=== PATIENT | male | born 1930 | race Caucasian/White ===

== ENCOUNTER 2016-09-24 12:35 | Day surgery (SDC) | payer MEDICARE ==
[~2016-09-24 12:35] MED LIST: AMLO10 PO; ASPI325T PO; BACT800T5 PO; CLOP75 PO; FENO1TAB76 PO; FISH1000 PO; FLAG500T PO; JANU50TA PO; LIPI20TA PO; NIAC250C6 PO; OCUVTAB4 PO; REST0.05 OU; VITA200017 PO
[2016-09-24 14:20] VITALS: BP 141/69; PULSE 45; RESP 18; O2SAT 97
[2016-09-24 14:35] VITALS: BP 138/79; PULSE 47; RESP 18; TEMP 97.7; O2SAT 98
--- NOTE | 2016-09-24 16:27 | RADRPT ---
EXAM DATE/TIME: 09/24/2016 13:41 [facility] COMPARISON: No previous studies available for comparison. EXTERNAL COMPARISON: [facility], CT SOFT TISSUE NECK, W/O CONTRAST, Sep 10 2016 INDICATIONS : Enlarged lymph node. MEDICAL HISTORY : Hypercholesterolemia. Colon cancer. Prostate cancer. Bladder cancer. Hypertension. Kidney disease. Melanoma. CVA. Diabetes. SURGICAL HISTORY : Cholecystectomy T & A. Colon resection. TURP. TUR-BT. Left rotater cuff. ENCOUNTER: Initial ACUITY: 3 months PAIN SCORE: 0/10 LOCATION: Right lymph node. ORGAN: Right lymph node SPECIMENS: Two core specimen(s) submitted for pathologic evaluation. DEVICE: 18 gauge Temno needle Post procedure scanning reveals no hematoma or other complication. The possibility does exist that the tissue obtained will be non-diagnostic. If the sample is non-carol gnostic a repeat biopsy or surgical biopsy may need to be performed. TECHNIQUE: 1. Ultrasound guidance for needle biopsy. 2. Needle biopsy. The risks, benefits, and alternatives to ultrasound guided needle biopsy were explained to the patien t in detail including the risk of bleeding and infection. Written and verbal informed consent was ob tained. With the patient on the ultrasound table, images were obtained. Overlying skin was prepped and drape d in the usual sterile fashion and Lidocaine was utilized as a local anesthetic. A needle was advanced into the identified target and the number of specimens as above obtained and lockett bmitted for pathologic evaluation. The patient tolerated the procedure well and left the ultrasound suite in stable condition. CONCLUSION: Uncomplicated ultrasound guided needle biopsy of mass in the right neck. Hao Tolentino MD on September 24, 2016 at 16:25 Board Certified Radiologist. This report was verified electronically.
[2016-09-24] MEDS ORDERED: LIDOCAINE HCL 1% PF 30 ML VIAL ONE (17:28)
== END 2016-09-24 14:48 | disposition home or self-care (01) ==
LOC: HRAD 12:35 → HRIP 12:38 → HRAD 14:48
PROVIDERS: ATTEND Surgery
DX: C96.Z Other specified malignant neoplasms of lymphoid, hematopoietic and related tissue (principal); E11.9 Type 2 diabetes mellitus without complications; E78.00 Pure hypercholesterolemia, unspecified; I10 Essential (primary) hypertension; Z85.038 Personal history of other malignant neoplasm of large intestine; Z85.46 Personal history of malignant neoplasm of prostate
CPT/HCPCS: 38505; 76942; 88305; 88341; 88342

== ENCOUNTER → 2016-10-15 | Outpatient (CLI) | payer MEDICARE ==
[~2016-10-15] MED LIST changes: +AMLO10CA PO; +ATOR20TA15 PO; +LISI-515 PO; +MULT-142 PO; +NIAC500C4 PO; +NORC5TAB PO; +OMEG12002 PO; +PLAV75TA29 PO; +SITA1TAB2 PO; +VITA2000 PO
--- NOTE | 2016-10-15 13:44 | RADRPT ---
EXAM DATE/TIME: 10/15/2016 00:00 [facility] COMPARISON: No previous studies available for comparison. OUTSIDE STUDY REVIEWED: INDICATIONS : CT Guided Left Lung Lesion Biopsy FINDINGS: There are several small PET positive nodules that are too small for percutaneous biopsy. These could be localized for thorascopic biopsy if desired. Thank you for this consultation. . Gerber Thompson MD FACR on October 15, 2016 at 13:41 Board Certified Radiologist. This report was verified electronically.
== END ==
LOC: HRAD 12:17
PROVIDERS: ATTEND Surgery
DX: R91.1 Solitary pulmonary nodule (principal)
CPT/HCPCS: 76140

== ENCOUNTER 2016-10-28 10:40 | Inpatient (IN) | payer MEDICARE ==
[~2016-10-28] VITALS: Ht 179.1 cm; Wt 97.0 kg
[~2016-10-28 10:40] MED LIST changes: -AMLO10CA PO; -ATOR20TA15 PO; -LISI-515 PO; -MULT-142 PO; -NIAC500C4 PO; -NORC5TAB PO; -OMEG12002 PO; -PLAV75TA29 PO; -SITA1TAB2 PO; -VITA2000 PO
[2016-10-28] MEDS ORDERED: LACTATED RINGER'S 1000 ML IV PRN (11:15)
[2016-10-28] MEDS ORDERED: CHLORHEXIDINE GLUCONATE 2 % 1 PACK (2 CLOTHS) TOPICAL PRN (11:15)
[2016-10-28] MEDS ORDERED: POVIDONE IODINE 5% (ANTISEPSIS KIT) 4 APPLICATIONS EACH NARE PRN (11:15)
[2016-10-28] MEDS ORDERED: METOPROLOL TARTRATE 25 MG TAB PO PRN (11:15)
[2016-10-28] MEDS ORDERED: INSULIN HUMAN REGULAR 1,000 UNITS/10 ML VIAL SQ PRN (11:15)
[2016-10-28] MEDS ORDERED: SODIUM CHLORID 0.9% 500 ML IV PRN (11:15)
[2016-10-28] MEDS ORDERED: ceFAZolin 2 GM PREMIX 50 ML IV SCH (11:15)
[2016-10-28] MEDS ORDERED: ATOR20TA15 PO (11:54)
[2016-10-28] MEDS ORDERED: VITA2000 PO (11:54)
[2016-10-28] MEDS ORDERED: ASPI325T PO (11:54)
[2016-10-28] MEDS ORDERED: OMEG12002 PO (11:55)
[2016-10-28] MEDS ORDERED: SITA1TAB2 PO (11:55)
[2016-10-28] MEDS ORDERED: NIAC500C4 PO (11:55)
[2016-10-28] MEDS ORDERED: LISI-515 PO (11:55)
[2016-10-28] MEDS ORDERED: MULT-142 PO (11:55)
[2016-10-28] MEDS ORDERED: AMLO10CA PO (11:55)
[2016-10-28] MEDS ORDERED: PLAV75TA29 PO (11:55)
[2016-10-28 12:07] VITALS: BP 157/65; PULSE 55; RESP 18; TEMP 97.1; O2SAT 98
[2016-10-28 12:24] LABS: AUTOMATED NEUTROPHIL # 3.5 TH/MM3 (1.8-7.7); BASOPHIL % 0.8 % (0.0-2.0); EOSINOPHIL # 0.1 TH/MM3 (0-0.4); EOSINOPHIL % 1.9 % (0.0-4.0); HEMO FLAGS DIFF FINAL; LYMPH % 20.9 % (9.0-44.0); LYMPHOCYTE # 1.1 TH/MM3 (1.0-4.8); MEAN CORPUSCULAR HEMOGLOBIN 28.7 PG (27.0-34.0); MEAN CORPUSCULAR HGB CONC 34.6 % (32.0-36.0); MONO % 8.8 % (0.0-8.0); NEUT % 67.6 % (16.0-70.0); PLATELET COUNT 182 TH/MM3 (150-450); RED BLOOD COUNT 4.34 MIL/MM3 (4.50-5.90); RED CELL DISTRIBUTION WIDTH 13.7 % (11.6-17.2); WHITE BLOOD COUNT 5.1 TH/MM3 (4.0-11.0)
[2016-10-28 12:33] LABS: POTASSIUM 4.4 MEQ/L (3.5-5.1)
[2016-10-28] MEDS ORDERED: FAMOTIDINE 20 MG/2 ML VIAL ONE (13:20)
--- NOTE | 2016-10-28 13:52 | EKG ---
Date Performed: 10/28/2016 Time Performed: 11:13:40 PTAGE: 86 years EKG: SINUS BRADYCARDIA MARKED LEFT AXIS DEVIATION INCOMPLETE RIGHT BUNDLE BRANCH BLOCK NONSPECIF IC T-WAVE ABNORMALITY ABNORMAL ECG NO SIGNIFICANT CHANGE FROM PRIOR ELECTROCARDIOGRAM. PREVIOUS TRACING : 10/12/2015 16.15 DOCTOR: [place] Interpretating Date/Time 10/28/2016 13:51:52
[2016-10-28] MEDS ORDERED: PROPOFOL 200 MG/20 ML AMP IV ONE (14:49)
[2016-10-28] MEDS ORDERED: ONDANSETRON HCL 4 MG/2 ML VIAL IV PUSH ONE (14:50)
[2016-10-28] MEDS ORDERED: LACTATED RINGER'S 1000 ML INJ 1,000 ML IV ONE (14:50)
[2016-10-28] MEDS ORDERED: ePHEDrine/NS 25 MG/5 ML SYR IV ONE (14:50)
[2016-10-28] MEDS ORDERED: BACITRACIN TOP OINT 15 GM TUBE ONE (14:53)
[2016-10-28] MEDS ORDERED: SODIUM BICARBONATE 8.4% INJ 50 MEQ/50 ML SYR ONE (14:54)
[2016-10-28] MEDS ORDERED: VASOPRESSIN INJ 20 UNITS/ML VIAL IV ONE (14:54)
[2016-10-28] MEDS ORDERED: BUPIVACAINE HCL PF 0.25% 30 ML VIAL ONE (14:54)
[2016-10-28] MEDS ORDERED: MIDAZOLAM HCL 2 MG/2 ML VIAL ONE (14:58)
[2016-10-28] MEDS ORDERED: KETAMINE HCL 500 MG/5 ML VIAL ONE (15:10)
[2016-10-28] MEDS ORDERED: ceFAZolin INJ 1,000 MG VIAL IV ONE (16:28)
--- NOTE | 2016-10-28 19:12 | HHI.PR ---
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
[2016-10-28] MEDS ORDERED: SODIUM CHLORIDE 0.9% FLUSH 10 ML FLUSH IV FLUSH PRN (19:15)
[2016-10-28] MEDS ORDERED: MORPHINE SULFATE 30 MG/30 ML PCA IV SCH (19:15)
[2016-10-28] MEDS ORDERED: GLUCAGON 1 MG/ML VIAL OTHER PRN (19:15)
[2016-10-28] MEDS ORDERED: Post-op Orders (for Pharmacy) MISC XX ONE (19:15)
[2016-10-28] MEDS ORDERED: diphenhydrAMINE HCL 25 MG CAP PO PRN (19:15)
[2016-10-28] MEDS ORDERED: ONDANSETRON HCL 4 MG/2 ML VIAL IV PRN (19:15)
[2016-10-28] MEDS ORDERED: ACETAMINOPHEN 325 MG TAB PO PRN (19:15)
[2016-10-28] MEDS ORDERED: NALOXONE HCL 0.4 MG/ML AMP IV PRN (19:15)
[2016-10-28] MEDS ORDERED: DEXTROSE 50% IN WATER 50 ML VIAL(D50) IV PUSH PRN (19:15)
[2016-10-28] MEDS: SODIUM CHLOR 0.9% 1000 ML INJ 1,000 ML IV SCH (19:45)
[2016-10-28] MEDS ORDERED: DO NOT ADM ANY ANTICOAGULANT DRUGS PRN (20:00)
[2016-10-28] MEDS: SODIUM CHLORIDE 0.9% FLUSH 10 ML FLUSH IV FLUSH SCH (20:08)
[2016-10-28] MEDS: ATORVASTATIN 20 MG TAB PO SCH (20:23)
[2016-10-28] MEDS: INSULIN NovoLIN REGULAR SUPPLEMENTAL SCALE SQ SCH (21:00)
[2016-10-28] MEDS: PCA - TOTAL MG MORPHINE DELIVERED PER SHIFT SCH (22:00)
[2016-10-29] VITALS (9 sets, daily range): BP systolic 111–133; BP diastolic 54–61; PULSE 52–63; RESP 14–20; TEMP 97.5–98; O2SAT 96–98
[2016-10-29] MEDS: SODIUM CHLOR 0.9% 1000 ML INJ 1,000 ML IV SCH (04:45)
[2016-10-29] MEDS: PCA - TOTAL MG MORPHINE DELIVERED PER SHIFT SCH ×3 (06:00→21:06)
[2016-10-29] MEDS: INSULIN NovoLIN REGULAR SUPPLEMENTAL SCALE SQ SCH ×4 (06:50→19:35)
[2016-10-29] MEDS: amLODIPine BESYLATE 5 MG TAB PO SCH (08:59)
[2016-10-29] MEDS: LISINOPRIL 20 MG TAB PO SCH (08:59)
[2016-10-29] MEDS ORDERED: LISINOPRIL 20 MG TAB PO SCH (09:00)
[2016-10-29] MEDS: SODIUM CHLORIDE 0.9% FLUSH 10 ML FLUSH IV FLUSH SCH ×2 (09:00→19:27)
[2016-10-29] MEDS ORDERED: NON-FORMULARY DRUG (Amlodipine-Benazepril 1 CAP) PO SCH (09:00)
--- NOTE | 2016-10-29 09:12 | PD.CONS ---
HPI Service [facility] Consult Requested By Reason for Consult post-op medical management Primary Care Physician Sarah Hyatt MD Diagnoses: History of Present Illness patient is a 86 y/o male with history of skin cancer,colon cancer, hypertension , diabetes, dyslipidemia, prostate cancer and TIA who was admitted to the hospital and underwent right cervical lymphadenectomy and radical resection of right submandibular gland. medicine was consulted for post-op medical management. at the time of my evaluation he was resting comfortably with no acute distress. he denies chest pain, sob, abdominal pain, nausea or vomiting. pain to the right neck is mild at this time. he denies any other complaints. Review of Systems Constitutional: DENIES: Fever, Weight loss, Chills, Night Sweats Eyes: DENIES: Blurred vision, Diplopia, Vision loss, Double Vision Ears, nose, mouth, throat: DENIES: Tinnitus, Vertigo, Throat pain, Epistaxis Respiratory: DENIES: Apneas, Cough, Snoring, Wheezing, Hemoptysis, Sputum production, Shortness of breath Cardiovascular: DENIES: Chest pain, Palpitations, Syncope, Dyspnea on Exertion , PND, Lower Extremity Edema, Orthopnea, Claudication Gastrointestinal: DENIES: Abdominal pain, Black stools, Bloody stools, Constipation, Diarrhea, Nausea, Vomiting, Difficulty Swallowing, Anorexia Genitourinary: DENIES: Urinary frequency, Urgency, Hematuria, Dysuria Musculoskeletal: COMPLAINS OF: Neck pain, DENIES: Joint pain, Muscle aches, Stiffness, Joint Swelling Integumentary: DENIES: Rash Neurologic: DENIES: Abnormal gait, Headache, Localized weakness, Paresthesias, Seizures, Speech Problems, Tremor, Poor Balance Psychiatric: DENIES: Anxiety, Confusion, Mood changes, Depression, Hallucinations, Agitation, Suicidal Ideation, Homicidal Ideation, Delusions Past Family Social History Allergies: Coded Allergies: Erythromycin (Verified Allergy, Severe, SWELLING & HIVES, 10/28/16) Past Medical History hypertension diabetes mellitus dyslipidemia colon cancer, bladder cancer, prostate cancer, skin cancer TIA Past Surgical History colon resection TURP tonsillectomy Reported Medications amlodipine benazepril atorvastatin niacin aspirin plavix cholecalciferol januvia Active Ordered Medications Current Medications Cefazolin Sodium/ Dextrose 50 ml @ 100 mls/hr IMPORT MANAGER IV Last administered on 10/28/16t 12:36; Start 10/28/16 at 11:15; Stop 10/31/16 at 11:14 Lactated Ringer's 1,000 ml @ 30 mls/hr Q24H PRN IV SEE LABEL COMMENTS Last administered on 10/28/16 12:00; Start 10/28/16 at 11:15; Stop 10/28/16 at 19:14 ; Status DC Sodium Chloride (NS 500 ml Inj) 500 ml @ 30 mls/hr [id number] PRN IV SEE LABEL COMMENTS; Start 10/28/16 at 11:15; Stop 10/28/16 at 19:14; Status DC Metoprolol Tartrate (Lopressor) 25 mg IMPORT MANAGER PRN PO SEE LABEL COMMENTS; Start 10/28/16 at 11:15; Stop 10/28/16 at 19:14; Status DC Povidone Iodine (Betadine 5% Antisepsis Kit) 1 applic IMPORT MANAGER PRN EACH NARE SEE LABEL COMMENTS Last administered on 10/28/16 12:00; Start 10/28/16 at 11:15 ; Stop 10/28/16 at 19:14; Status DC Chlorhexidine Gluconate (Chlorhexidine 2% Cloth) 3 pack IMPORT MANAGER PRN TOPICAL SEE LABEL COMMENTS Last administered on 10/28/16 11:50; Start 10/28/16 at 11:15 ; Stop 10/28/16 at 19:14; Status DC Insulin Human Regular (NovoLIN R INJ) See Protocol Table ... IMPORT MANAGER PRN SQ SEE PROTOCOL TABLE; Start 10/28/16 at 11:15; Stop 10/28/16 at 19:14; Status DC Famotidine (Pepcid Inj) 20 mg STK-MED ONCE .ROUTE Last administered on 13:22; Start 10/28/16 at 13:20; Stop 10/28/16 at 13:21; Status DC Bacitracin (Baciguent Oint) 15 applic STK-MED ONCE .ROUTE ; Start 10/28/16 at 14 :53; Stop 10/28/16 at 14:54; Status DC Bupivacaine HCl (Marcaine Pf 0.25% Inj) 30 ml STK-MED ONCE .ROUTE Last administered on 10/28/16 15:44; Start 10/28/16 at 14:54; Stop 10/28/16 at 14:55 ; Status DC Sodium Bicarbonate (Sodium Bicarbonate 8.4% Inj) 50 meq STK-MED ONCE .ROUTE ; Start 10/28/16 at 14:54; Stop 10/28/16 at 14:55; Status DC Midazolam HCl (Versed Inj) 2 mg STK-MED ONCE .ROUTE Last administered on 15:00; Start 10/28/16 at 14:58; Stop 10/28/16 at 14:59; Status DC Ketamine HCl (Ketalar Inj) 500 mg STK-MED ONCE .ROUTE ; Start 10/28/16 at 15:10 ; Stop 10/28/16 at 15:11; Status DC Cefazolin Sodium (Ancef Inj) 2,000 mg STK-MED ONCE IV Last administered on 10/28 16:28; Start 10/28/16 at 16:28; Stop 10/28/16 at 16:30; Status DC Atorvastatin Calcium (Lipitor) 20 mg HS PO Last administered on 10/28/16 20:23 ; Start 10/28/16 at 21:00 Lisinopril (Prinivil) 20 mg DAILY PO ; Start 10/29/16 at 09:00; Stop 10/29/16 at 09:00; Status DC Non-Formulary Medication 1 cap 1 cap DAILY PO BPM; Start 10/29/16 at 09:00; Stop 10/29/16 at 09:00; Status DC Sodium Chloride (NS 1000 ml Inj) 1,000 ml @ 100 mls/hr Q10H IV Last administered on 10/29/16 04:45; Start 10/28/16 at 19:01 Sodium Chloride (NS Flush) 2 ml UNSCH PRN IV FLUSH FLUSH AFTER USING IV ACCESS ; Start 10/28/16 at 19:15 Sodium Chloride (NS Flush) 2 ml BID IV FLUSH ; Start 10/28/16 at 21:00 Acetaminophen (Tylenol) 650 mg Q4H PRN PO PAIN SCALE 1 TO 10; Start 10/28/16 at 19:15 Ondansetron HCl (Zofran Inj) 4 mg Q4H PRN IV NAUSEA OR VOMITING; Start at 19:15 Diphenhydramine HCl (Benadryl) 25 mg Q6H PRN PO ITCHING; Start 10/28/16 at 19: 15 Miscellaneous Information (Post-op Orders (for Pharmacy)) STAT ONCE XX ; Start 10/28/16 at 19:15; Stop 10/28/16 at 19:21; Status DC Insulin Human Regular (NovoLIN R SUPPLEMENTAL SCALE) 1 ACHS SQ ; Start 10/28/16 at 21:00 Dextrose (D50w (Vial) Inj) 50 ml UNSCH PRN IV PUSH HYPOGLYCEMIA-SEE COMMENTS; Start 10/28/16 at 19:15 Glucagon (Glucagon Inj) 1 mg UNSCH PRN OTHER HYPOGLYCEMIA-SEE COMMENTS; Start 10/28/16 at 19:15 Naloxone HCl (Narcan Inj) 0.4 mg UNSCH PRN IV RESPIRATORY RATE LESS THAN 10; Start 10/28/16 at 19:15 Morphine Sulfate (Morphine 1 Mg/ ml LISW) 30 mg UNSCH IV Last administered on t 20:08; Start 10/28/16 at 19:15 LISW Dosage Infused (Pha) 1 Q8HR .XX Last administered on 10/29/16 06:00; Start 10/28/16 at 22:00 Fentanyl Citrate (fentaNYL INJ) 100 mcg [employer]-MED ONCE .ROUTE ; Start 10/28/16 at 19:13; Stop 10/28/16 at 19:14; Status DC Amlodipine Besylate (Norvasc) 10 mg DAILY PO ; Start 10/29/16 at 09:00 Lisinopril (Prinivil) 20 mg DAILY PO ; Start 10/29/16 at 09:00 Miscellaneous Information ALL NURSING DEPARTME... UNSCH PRN .XX SEE LABEL COMMENTS; Start 10/28/16 at 20:00; Stop 10/29/16 at 19:59 Social History quit smoking and drinking years ago. Physical Exam Vital Signs Vital Signs Date Time Temp Pulse Resp B/P Pulse Ox O2 Delivery O2 Flow Rate FiO2 10/29/16 06:20 98 Nasal Cannula 2.00 10/29/16 06:00 60 10/29/16 06:00 14 10/29/16 04:00 98.7 63 18 145/68 97 Nasal Cannula 2 10/29/16 03:00 53 16 128/58 98 Nasal Cannula 2 10/29/16 02:00 54 17 124/58 98 Nasal Cannula 2 10/29/16 01:00 54 16 126/58 96 Nasal Cannula 2 10/29/16 00:00 98.5 61 14 125/60 96 Nasal Cannula 2 10/28/16 23:00 58 14 127/58 96 Nasal Cannula 2 10/28/16 22:00 57 17 127/62 96 Nasal Cannula 2 10/28/16 22:00 17 10/28/16 21:00 97.6 65 15 156/65 95 Room Air 10/28/16 20:08 10 10/28/16 20:00 98.3 63 10 130/60 97 Nasal Cannula 2 10/28/16 19:45 65 12 133/60 97 Nasal Cannula 2 10/28/16 19:30 62 8 137/65 96 Nasal Cannula 2 10/28/16 19:15 71 16 126/53 96 Nasal Cannula 3 10/28/16 19:08 98.0 68 14 145/67 96 Nasal Cannula 3 10/28/16 12:07 97.1 55 18 157/65 98 Physical Exam GENERAL: This is a well-nourished, well-developed patient, in no apparent distress. SKIN: No rashes, ecchymoses or lesions. Cool and dry. HEAD: Atraumatic. Normocephalic. No temporal or scalp tenderness. EYES: Pupils equal round and reactive. Extraocular motions intact. No scleral icterus. No injection or drainage. ENT: Nose without bleeding, purulent drainage or septal hematoma. Throat without erythema, tonsillar hypertrophy or exudate. Uvula midline. Airway patent. NECK: clean dressing with drain in place on right neck. CARDIOVASCULAR: Regular rate and rhythm without murmurs, gallops, or rubs. RESPIRATORY: Clear to auscultation. Breath sounds equal bilaterally. No wheezes , rales, or rhonchi. GASTROINTESTINAL: Abdomen soft, non-tender, nondistended. No hepato-splenomegaly , or palpable masses. No guarding. MUSCULOSKELETAL: Extremities without clubbing, cyanosis, or edema. No joint tenderness, effusion, or edema noted. No calf tenderness. Negative Homans sign bilaterally. NEUROLOGICAL: Awake and alert. Cranial nerves II through XII intact. Motor and sensory grossly within normal limits. Five out of 5 muscle strength in all muscle groups. Normal speech. Laboratory Laboratory Tests Test 10/28/16 11:50 White Blood Count 5.1 Red Blood Count 4.34 Hemoglobin 12.5 Hematocrit 36.0 Mean Corpuscular Volume 83.0 Mean Corpuscular Hemoglobin 28.7 Mean Corpuscular Hemoglobin 34.6 Concent Red Cell Distribution Width 13.7 Platelet Count 182 Mean Platelet Volume 8.2 Neutrophils (%) (Auto) 67.6 Lymphocytes (%) (Auto) 20.9 Monocytes (%) (Auto) 8.8 Eosinophils (%) (Auto) 1.9 Basophils (%) (Auto) 0.8 Neutrophils # (Auto) 3.5 Lymphocytes # (Auto) 1.1 Monocytes # (Auto) 0.4 Eosinophils # (Auto) 0.1 Basophils # (Auto) 0.0 CBC Comment DIFF FINAL Differential Comment Sodium Level 140 Potassium Level 4.4 Chloride Level 109 Carbon Dioxide Level 23.0 Anion Gap 8 Blood Urea Nitrogen 34 Creatinine 1.65 Estimat Glomerular Filtration 40 Rate Random Glucose 137 Calcium Level 8.5 Result Diagram: 10/28/16 1150 10/28/16 1150 Assessment and Plan Assessment and Plan A/P - melanoma- s/p right cervical lymphadenectomy (right modified radical neck dissection) and radical resection of right submandibular gland continue with pain control- management per surgery -hypertension; fairly controlled; continue amlodipine and lisinopril -dyslipidemia; continue statin -diabetes mellitus;on accu-check with SSI -chronic renal insufficiency; at his baseline- will monitor. -TIA; resume aspirin and plavix when ok with surgery -DVT prophylaxis with SCD's thank you for the consult. Discussed Condition With the patient. Pablito Fernandez MD Oct 29, 2016 09:12
--- NOTE | 2016-10-29 13:36 | HHI.FF ---
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 My clinical findings support the need for the requested home health care services because: Limited ability to care for self High risk of falls I certify that my clinical findings support that this patient is homebound because: Post-op weakness Cari Raines [facility] Oct 29, 2016 13:36
--- NOTE | 2016-10-29 14:26 | HHI.PR ---
Subjective Subjective Notes Resting in bed reading the newspaper Ready to try regular diet Talks about dog at home name Amanda Objective Vitals/I&O Vital Signs Date Time Temp Pulse Resp B/P Pulse Ox O2 Delivery O2 Flow Rate FiO2 10/29/16 12:00 98.0 59 17 127/61 97 10/29/16 08:00 Room Air 10/29/16 06:20 2.00 Labs Laboratory Tests Test 10/29/16 06:00 Nasal Screen MRSA (PCR) MRSA NOT DETECTED Cardiovascular: Regular Lungs: Clear Abdomen: Non-distended, Non-tender Extremities: No edema Narrative Exam RIGHT neck: incision c/d/i; JOSE with SS drainage; minimal drainage on 4x4--- removed and changed; no swelling; no phonation issues A/P Assessment and Plan 86 year old male POD1 right cervical lymphadenectomy (right modified radical neck dissection); radical resection of right submandibular gland -Continue routine JOSE drain care -Advance diet -OOB -DC fluids -HHC arranged for drain care -Transfer to Med Surg -RN Meagan at bedside Attending Statement The exam, history, and the medical decision-making described in the above note were completed with the assistance of the mid-level provider. I reviewed and agree with the findings presented. I attest that I had a [id number] encounter with the patient on the same day, and personally performed and documented my assessment and findings in the medical record. neck with no swelling, no voice or swallowing issues ok to advance diet and transfer to floor Cari Raines Oct 29, 2016 14:25 Yoel Marcos MD Nov 07, 2016 10:10
[2016-10-29] MEDS: ATORVASTATIN 20 MG TAB PO SCH (19:27)
[2016-10-30 00:30] VITALS: BP 131/63; PULSE 68; RESP 18; TEMP 97.4; O2SAT 100
[2016-10-30] MEDS: PCA - TOTAL MG MORPHINE DELIVERED PER SHIFT SCH ×2 (04:04→11:38)
[2016-10-30] MEDS: INSULIN NovoLIN REGULAR SUPPLEMENTAL SCALE SQ SCH ×2 (05:57→11:00)
[2016-10-30 08:00] VITALS: BP 174/74; PULSE 73; RESP 18; TEMP 97.7; O2SAT 95
--- NOTE | 2016-10-30 08:20 | HHI.PR ---
Subjective Remarks in no distress. looks comfortable. had a good sleep last night. denies pain. no new complaints. Objective Vitals Vital Signs Date Time Temp Pulse Resp B/P Pulse Ox O2 Delivery O2 Flow Rate FiO2 10/30/16 08:00 97.7 73 18 174/74 95 10/30/16 00:30 97.4 68 18 131/63 100 10/29/16 21:06 18 10/29/16 20:00 97.9 63 20 120/56 96 10/29/16 19:17 Room Air 10/29/16 18:00 58 10/29/16 16:00 97.5 52 20 111/54 96 10/29/16 16:00 52 10/29/16 14:00 59 10/29/16 14:00 18 10/29/16 12:00 98.0 59 17 127/61 97 10/29/16 12:00 59 10/29/16 10:00 52 I/O 10/29/16 10/29/16 10/29/16 10/30/16 10/30/16 10/30/16 07:00 15:00 23:00 07:00 15:00 23:00 Intake Total 1990 ml 2079 ml 240 ml 280 ml Output Total 795 ml 320 ml 20 ml 5 ml Balance 1195 ml 1759 ml 220 ml 275 ml Intake Oral 1048 ml 1920 ml 240 ml 280 ml IV Total 942 ml 159 ml Output Urine Total 750 ml 300 ml Drainage Total 45 ml 20 ml 20 ml 5 ml # Voids 2 3 2 1 # Bowel Movements 2 1 0 Result Diagram: 10/28/16 1150 10/28/16 1150 Objective Remarks GENERAL: This is a well-nourished, well-developed patient, in no apparent distress. Neck; site of surgery covered with clean dressing with drain in place CARDIOVASCULAR: Regular rate and regular rhythm without murmurs, gallops, or rubs. RESPIRATORY: Clear to auscultation. Breath sounds equal bilaterally. No wheezes , rales, or rhonchi. GASTROINTESTINAL: Abdomen soft, non-tender, nondistended. Normal, active bowel sounds MUSCULOSKELETAL: Extremities without clubbing, cyanosis, or edema. NEURO: Alert & Oriented x4 to person, place, time, situation. Moves all ext x4 Medications and IVs Current Medications Cefazolin Sodium/ Dextrose 50 ml @ 100 mls/hr MANAGER [employer]ION[employer] SALES IV Last administered on 10/28/16 12:36; Start 10/28/16 at 11:15; Stop 10/31/16 at 11:14 Lactated Ringer's 1,000 ml @ 30 mls/hr Q24H PRN IV SEE LABEL COMMENTS Last administered on 10/28/16 12:00; Start 10/28/16 at 11:15; Stop 10/28/16 at 19:14 ; Status DC Sodium Chloride (NS 500 ml Inj) 500 ml @ 30 mls/hr [id number] PRN IV SEE LABEL COMMENTS; Start 10/28/16 at 11:15; Stop 10/28/16 at 19:14; Status DC Metoprolol Tartrate (Lopressor) 25 mg MANAGER [employer] SAL[employer] PRN PO SEE LABEL COMMENTS; Start 10/28/16 at 11:15; Stop 10/28/16 at 19:14; Status DC Povidone Iodine (Betadine 5% Antisepsis Kit) 1 applic MANAGER [employer] SALES PRN EACH NARE SEE LABEL COMMENTS Last administered on 10/28/16 12:00; Start 10/28/16 at 11:15 ; Stop 10/28/16 at 19:14; Status DC Chlorhexidine Gluconate (Chlorhexidine 2% Cloth) 3 pack MANAGER REGION[employer] SALES PRN TOPICAL SEE LABEL COMMENTS Last administered on 10/28/16 11:50; Start 10/28/16 at 11:15 ; Stop 10/28/16 at 19:14; Status DC Insulin Human Regular (NovoLIN R INJ) See Protocol Table ... MANAGER [employer]ION[employer] SALES PRN SQ SEE PROTOCOL TABLE; Start 10/28/16 at 11:15; Stop 10/28/16 at 19:14; Status DC Famotidine (Pepcid Inj) 20 mg STK-MED ONCE .ROUTE Last administered on 13:22; Start 10/28/16 at 13:20; Stop 10/28/16 at 13:21; Status DC Bacitracin (Baciguent Oint) 15 applic STK-MED ONCE .ROUTE ; Start 10/28/16 at 14 :53; Stop 10/28/16 at 14:54; Status DC Bupivacaine HCl (Marcaine Pf 0.25% Inj) 30 ml STK-MED ONCE .ROUTE Last administered on 10/28/16 15:44; Start 10/28/16 at 14:54; Stop 10/28/16 at 14:55 ; Status DC Sodium Bicarbonate (Sodium Bicarbonate 8.4% Inj) 50 meq STK-MED ONCE .ROUTE ; Start 10/28/16 at 14:54; Stop 10/28/16 at 14:55; Status DC Midazolam HCl (Versed Inj) 2 mg STK-MED ONCE .ROUTE Last administered on 15:00; Start 10/28/16 at 14:58; Stop 10/28/16 at 14:59; Status DC Ketamine HCl (Ketalar Inj) 500 mg STK-MED ONCE .ROUTE ; Start 10/28/16 at 15:10 ; Stop 10/28/16 at 15:11; Status DC Cefazolin Sodium (Ancef Inj) 2,000 mg STK-MED ONCE IV Last administered on 10/28 16:28; Start 10/28/16 at 16:28; Stop 10/28/16 at 16:30; Status DC Atorvastatin Calcium (Lipitor) 20 mg HS PO Last administered on 10/29/16 19:27 ; Start 10/28/16 at 21:00 Lisinopril (Prinivil) 20 mg DAILY PO ; Start 10/29/16 at 09:00; Stop 10/29/16 at 09:00; Status DC Non-Formulary Medication 1 cap 1 cap DAILY PO BPM; Start 10/29/16 at 09:00; Stop 10/29/16 at 09:00; Status DC Sodium Chloride (NS 1000 ml Inj) 1,000 ml @ 100 mls/hr Q10H IV Last administered on 10/29/16 04:45; Start 10/28/16 at 19:01; Stop 10/29/16 at 13:21 ; Status DC Sodium Chloride (NS Flush) 2 ml UNSCH PRN IV FLUSH FLUSH AFTER USING IV ACCESS ; Start 10/28/16 at 19:15 Sodium Chloride (NS Flush) 2 ml BID IV FLUSH Last administered on 10/29/16 19: 27; Start 10/28/16 at 21:00 Acetaminophen (Tylenol) 650 mg Q4H PRN PO PAIN SCALE 1 TO 10; Start 10/28/16 at 19:15 Ondansetron HCl (Zofran Inj) 4 mg Q4H PRN IV NAUSEA OR VOMITING; Start at 19:15 Diphenhydramine HCl (Benadryl) 25 mg Q6H PRN PO ITCHING; Start 10/28/16 at 19: 15 Miscellaneous Information (Post-op Orders (for Pharmacy)) STAT ONCE XX ; Start 10/28/16 at 19:15; Stop 10/28/16 at 19:21; Status DC Insulin Human Regular (NovoLIN R SUPPLEMENTAL SCALE) 1 ACHS SQ Last administered on 10/29/16 19:35; Start 10/28/16 at 21:00 Dextrose (D50w (Vial) Inj) 50 ml UNSCH PRN IV PUSH HYPOGLYCEMIA-SEE COMMENTS; Start 10/28/16 at 19:15 Glucagon (Glucagon Inj) 1 mg UNSCH PRN OTHER HYPOGLYCEMIA-SEE COMMENTS; Start 10/28/16 at 19:15 Naloxone HCl (Narcan Inj) 0.4 mg UNSCH PRN IV RESPIRATORY RATE LESS THAN 10; Start 10/28/16 at 19:15 Morphine Sulfate (Morphine 1 Mg/ ml SIGNAL HELPER) 30 mg UNSCH IV Last administered on 20:08; Start 10/28/16 at 19:15 SIGNAL HELPER Dosage Infused (Pha) 1 Q8HR .XX Last administered on 10/29/16 14:00; Start 10/28/16 at 22:00 Fentanyl Citrate (fentaNYL INJ) 100 mcg STK-MED ONCE .ROUTE ; Start 10/28/16 at 19:13; Stop 10/28/16 at 19:14; Status DC Amlodipine Besylate (Norvasc) 10 mg DAILY PO Last administered on 10/29/16 08: 59; Start 10/29/16 at 09:00 Lisinopril (Prinivil) 20 mg DAILY PO Last administered on 10/29/16 08:59; Start 10/29/16 at 09:00 Miscellaneous Information ALL NURSING DEPARTME... UNSCH PRN .XX SEE LABEL COMMENTS; Start 10/28/16 at 20:00; Stop 10/29/16 at 19:59; Status DC A/P Assessment and Plan A/P - melanoma- s/p right cervical lymphadenectomy (right modified radical neck dissection) and radical resection of right submandibular gland continue with pain control- management per surgery -hypertension; fairly controlled; continue amlodipine and lisinopril -dyslipidemia; continue statin -diabetes mellitus;on accu-check with SSI -chronic renal insufficiency; at his baseline- will monitor. -TIA; resume aspirin and plavix when ok with surgery -DVT prophylaxis with SCD's Discharge Planning dc planning per surgery. Pablito Fernandez MD Oct 30, 2016 08:20
[2016-10-30] MEDS: amLODIPine BESYLATE 5 MG TAB PO SCH (08:39)
[2016-10-30] MEDS: LISINOPRIL 20 MG TAB PO SCH (08:40)
[2016-10-30] MEDS: SODIUM CHLORIDE 0.9% FLUSH 10 ML FLUSH IV FLUSH SCH (08:40)
[2016-10-30 09:15] VITALS: BP 173/70; PULSE 59; RESP 18; TEMP 96.9; O2SAT 94
[2016-10-30 09:46] VITALS: BP 125/60; PULSE 70; RESP 18; O2SAT 97
[2016-10-30 12:00] VITALS: BP 143/66; PULSE 72; RESP 18; TEMP 95.9; O2SAT 96
--- NOTE | 2016-10-30 12:08 | HHI.DS ---
Discharge Summary Admission Date Oct 28, 2016 at 19:06 Discharge Date: Oct 30, 2016 Admitting Diagnosis Brief History 86 year old male s/p right cervical lymphadenectomy (right modified radical neck dissection); radical resection of right submandibular gland CBC/BMP: 10/28/16 1150 10/28/16 1150 Significant Findings Laboratory Tests Test 10/28/16 11:50 Red Blood Count 4.34 MIL/MM3 (4.50-5.90) Hemoglobin 12.5 GM/DL (13.0-17.0) Hematocrit 36.0 % (39.0-51.0) Monocytes (%) (Auto) 8.8 % (0.0-8.0) Chloride Level 109 MEQ/L (98-107) Blood Urea Nitrogen 34 MG/DL (7-18) Creatinine 1.65 MG/DL (0.60-1.30) Estimat Glomerular Filtration 40 ML/MIN (>89) Rate Random Glucose 137 MG/DL (74-106) PE at Discharge Alert and awake; up to chair Cardio: RRR Resp: CTAB Abd: soft non tender RIGHT neck: incision c/d/i; JOSE with SS drainage; minimal drainage on 4x4--- removed and changed; no swelling; no phonation issues Hospital Course This is an 86 year old male s/p right cervical lymphadenectomy (right modified radical neck dissection); radical resection of right submandibular gland. The patient was able to tolerate a regular diet. The patient's pain was controlled using oral pain medications. [facility] with arranged for JOSE drain care. He will follow up with Dr. Marcos in about 1 week. Pt Condition on Discharge: Good Discharge Disposition: Disch w/ Home Health Serv Discharge Instructions DIET: Follow Instructions for: As Tolerated, No Restrictions Activities you can perform: See Additionl Instruction Other Activity Instructions: Home health nurse to monitor JOSE drain Cari Raines Oct 30, 2016 12:08
[2016-10-30] MEDS ORDERED: NORC5TAB PO (13:02)
--- NOTE | 2016-10-31 12:01 | MP ---
cc: JOSE JUAN BARRON DATE OF SURGERY: 10/28/2016 PREOPERATIVE DIAGNOSIS Metastatic melanoma, right neck. POSTOPERATIVE DIAGNOSIS Metastatic melanoma, right neck. PROCEDURE 1. En bloc resection of metastatic melanoma to level I lymph node basin and right submandibular gland. 2. Right cervical lymphadenectomy levels II, III, IV and V (right modified radical neck dissection). ATTENDING SURGEON Hemant CLAMP [employer] OPERATOR Staff. ANESTHESIA General and local anesthetic. COMPLICATIONS None. ESTIMATED BLOOD LOSS 100 cc. FINDINGS An approximately 6 cm pigmented metastasis consistent with metastatic melanoma in two lymph nodes, level I lymph nodes on the right involving the anterior inferior portion of the submandibular gland and completely encasing the right auricular nerve superficially over the sternocleidomastoid muscle. No other grossly positive lymph nodes on modified radical neck dissection. INDICATION FOR PROCEDURE The patient is an 86-year-old male with a history of melanoma of his right face. The patient underwent resection and sentinel lymph node biopsy several years prior was NAD. The patient noted a swelling in his right neck concerning for malignancy. The patient was referred to myself and underwent PET scan as well as biopsy which was concerning for likely melanoma metastasis and PET scan did reveal concern for possible pulmonary nodules. After discussion with the Tumor Board as well as Dr. Vieyra of radiation oncology, the patient was recommend to undergo resection of his right neck mass as well as modified radical neck dissection followed by radiation. The risks, benefits and alternatives to this procedure were discussed with the patient prior to the procedure, and the patient agreed to undergo the procedure. PROCEDURE After informed consent was obtained, the patient was taken to the operating room, placed in a supine position, and placed under general endotracheal anesthesia. The patient's right neck and chest wall were prepped and draped in a sterile fashion. A timeout was performed. The patient was in the beach-chair position with his arms tucked on a small shoulder roll. We marked our planned excision along the anterior border of the sternocleidomastoid muscle and marking out dissection back to the supraclavicular curved type incision on the right neck. We instilled local anesthetic in the subcutaneous tissue. We used a 15 blade scalpel to incise this without difficulty. We used Bovie electrocautery to dissect to platysma muscle over this planned excision. We made platysma flaps proximal and distal. We used a retractor set to retract our skin flaps and gain exposure. We divided the external jugular vein proximally and distally with Vicryl free ties and divided with Metzenbaum scissors. At this point in time we used the right-angle as well as the Harmonic focus to continue our dissection. We were able to dissect the mass off of the sternocleidomastoid inferiorly which was enveloping the great auricular nerve which was divided with removal of the mass. This was almost completely enveloping the submandibular gland and the submandibular duct was identified and tied off with a 3-0 silk suture and divided with the focus. We continued our dissection superiorly and posteriorly in level II lymph node basin and removed all lymphatic tissue posteriorly off of the vascular process. This was sent for permanent processing. We then turned our attention towards the modified right neck dissection. We mobilized the sternocleidomastoid muscle from the insertion down to the splaying of the clavicle. We retracted this with a Archer drain and used the Harmonic focus through a medial to lateral type dissection removing all lymph node tissue from around the jugular vein 360 degrees. We were careful to identify the vagus nerve as well as the carotid artery which were skeletonized but uninjured with the dissection. We continued our lateral dissection until the clavicle inferiorly and the trapezius muscle posteriorly. There were multiple level branches of the cervical nerves which were divided, however, the spinal accessory nerve was identified which was very posteriorly as it branches entered the trapezius muscle and this was spared. This was intact after the operation. All lymph nodes of level II, III, IV and V were passed off as a single specimen for permanent processing. We had excellent hemostasis. We irrigated out the neck with sterile saline. We placed a 10-[place] drain through a separate stab incision into the field and sutured this with a nylon suture. We turned our attention towards closure. We closed the platysma with interrupted 3-0 Vicryl sutures. We closed the skin with 4-0 Monocryl and Dermabond. The patient's drain was placed to suction and the patient was discontinued from anesthesia. The patient tolerated the procedure well. There were no apparent complications. All counts were correct. I was present and scrubbed for the entire procedure. Jose Juan Barron MD AWG/ALEX /5:54 PM /11:38 AM
== END 2016-10-30 13:34 | disposition home or self-care (01) | DRG 828 ==
LOC: HSDC 10:40 → EDSTATUS 13:00 → HSDI 19:06 → HPAC 20:00 → N03B 10-29 05:33 → N07B 10-29 22:54
PROVIDERS: ADMIT Surgery; ATTEND Surgery
PROC: 07T10ZZ Resection of Right Neck Lymphatic, Open Approach (ICD-10-PCS; principal; 2016-10-29)
PROC: 0CTG0ZZ Resection of Right Submaxillary Gland, Open Approach (ICD-10-PCS; 2016-10-29)
DX: C79.89 Secondary malignant neoplasm of other specified sites (principal); E11.9 Type 2 diabetes mellitus without complications; Z85.820 Personal history of malignant melanoma of skin; I12.9 Hypertensive chronic kidney disease with stage 1 through stage 4 chronic kidney disease, or unspecified chronic kidney disease; N18.9 Chronic kidney disease, unspecified; E78.5 Hyperlipidemia, unspecified; Z85.038 Personal history of other malignant neoplasm of large intestine; Z86.73 Personal history of transient ischemic attack (TIA), and cerebral infarction without residual deficits; Z85.46 Personal history of malignant neoplasm of prostate; Z87.891 Personal history of nicotine dependence
CPT/HCPCS: 80048; 82948; 85025; 87641; 88305; 88307; 93005; 94150; J0690; J2250; J2270; J2405; J3010; J7030; J7120